=== PATIENT | male | born 1955 | race Caucasian/White ===

== ENCOUNTER 2024-05-30 14:27 | Emergency (ER) | payer MEDICARE, BC | END 2024-05-30 15:07 | disposition home or self-care (01) | LOC: JP.ED 14:27 | DX: S93.402A Sprain of unspecified ligament of left ankle, initial encounter (principal); Z86.16 Personal history of COVID-19; X50.1XXA Overexertion from prolonged static or awkward postures, initial encounter; Y93.89 Activity, other specified | CPT/HCPCS: 99283 ==